=== PATIENT | female | born 1965 ===

== ENCOUNTER 2017-09-17 05:58 | Day surgery (SDC) | payer OTHER ==
[2017-09-14 09:43] VITALS: BMI 27.3
[2017-09-17] MEDS ORDERED: Lactated Ringer's 1,000 ML IV ONE ×2 (07:00→08:40)
[2017-09-17 07:10] VITALS: RESP 18
[2017-09-17] MEDS ORDERED: ePHEDrine 50 mg/ml Inj ONE (07:15)
[2017-09-17] MEDS ORDERED: Rocuronium 10 mg/ml (5 ml) ONE (07:15)
[2017-09-17] MEDS ORDERED: Propofol 10 mg/ml Inj (20 ML) ONE (07:15)
[2017-09-17] MEDS ORDERED: Midazolam 2 MG/2 ML VIAL ONE (07:15)
[2017-09-17] MEDS ORDERED: Succinylcholine 200 mg/10 ml Inj IV ONE (07:16)
[2017-09-17] MEDS ORDERED: Dexamethasone 4 mg/1 ml ONE (08:42)
[2017-09-17] MEDS ORDERED: Oxycodone/Acetaminophen 5/325 mg Tab PO PRN (08:58)
[2017-09-17] MEDS ORDERED: HYDROmorphone 0.5 mg/0.5 ml ISec IVP PRN (08:59)
[2017-09-17 13:34] VITALS: BP 116/73; PULSE 68; TEMP 98; O2SAT 98
--- NOTE | 2017-09-18 15:01 | OP ---
PROCEDURE DATE: 09/17/2017 PREOPERATIVE DIAGNOSES: Endometrial and endocervical polyps. POSTOPERATIVE DIAGNOSES: 1. Endometrial and endocervical polyps. 2. Pending pathology report. PROCEDURE PERFORMED: Hysteroscopy with MyoSure polypectomy and endocervical polypectomy. TYPE OF ANESTHESIA: General endotracheal. ANESTHESIA ADMINISTERED BY: Dr. Luis. FINDINGS: 1. Live endocervical polyp noted removed in toto. 2. Hysteroscopy revealed further endocervical polyps and a small endometrial polyp. Using MyoSure technique, polypectomy was performed. ESTIMATED BLOOD LOSS: 5 mL. DRAINS USED: None. REPLACEMENTS USED: None. DESCRIPTION OF PROCEDURE: The patient was taken to the operating room and placed on the operating table in a supine position. Following induction of general endotracheal anesthesia, the patient was then replaced in the dorsal lithotomy position. Perineal, genital areas were draped and prepped in a usual sterile manner. At this time, a sterile catheter was then placed into the bladder and clear fluid was then evacuated from the bladder. The patient was then examined under anesthesia with the above findings. Heavy-weighted speculum was then placed in the posterior wall of the vagina exposing the cervix. At the cervical os, a large endocervical polyp noted to be present. At this time, the polyp was grasped, twisted and removed in toto and sent to Pathology for pathological evaluation. Following this, the endocervical canal was then grasped using a single-tooth tenaculum and removed and moved superiorly. At this time, the endocervical canal was then dilated using Jessee dilators in an increasing size manner. Under direct visualization, a hysteroscope was then placed in the endocervical canal and advanced under direct visualization into the endometrial cavity. In the endometrial cavity, a small polyp noted to be present. No sloughing or endometrial active bleeding noted and at this time using MyoSure technique, the endometrial polyp was then removed in toto. The hysteroscope was then slowly removed under direct visualization showing the endocervical canal and another polyp and again using the MyoSure technique, endocervical polyp was then removed in toto. Specimens were then sent to pathology. The hysteroscope was then removed. Single-tooth tenaculum removed. No bleeding noted from the tenaculum site. At this time, no active bleeding and the patient tolerated the procedure well. There were no complications. She was transferred to the recovery room in satisfactory condition. Oh Suarez MD MTDD
== END 2017-09-17 14:10 | disposition home or self-care (01) ==
LOC: H.OPSURG 05:58
PROVIDERS: ATTEND Specialist
DX: N84.1 Polyp of cervix uteri (principal); I10 Essential (primary) hypertension; K21.9 Gastro-esophageal reflux disease without esophagitis; K44.9 Diaphragmatic hernia without obstruction or gangrene
CPT/HCPCS: 58558; 88305; J0330; J1100; J2001; J2250; J2405; J2704; J2765; J3010; J7030; J7120